=== PATIENT | female | born 1950 | race Native Hawaiian/Other Pacific Islander ===

== ENCOUNTER 2017-01-09 01:03 | Emergency (ER) | payer OTHER ==
[~2017-01-09] VITALS: Ht 172.7 cm; Wt 108.9 kg
[2017-01-09 01:58] LABS: PLATELET COUNT 292 K/uL (152-353)
[2017-01-09 02:20] VITALS: BP 129/60; TEMP 98.9
== END 2017-01-09 02:20 | disposition home or self-care (01) ==
LOC: ED 01:03
PROVIDERS: Specialist
DX: J02.0 Streptococcal pharyngitis (principal)
CPT/HCPCS: 36415; 85027; 87880; 99283

== ENCOUNTER 2017-06-04 13:48 | Outpatient (CLI) | payer OTHER | END 2017-06-04 14:50 | disposition home or self-care (01) | LOC: LAB 13:48 | DX: N39.0 Urinary tract infection, site not specified (principal) | CPT/HCPCS: 81000; 87077; 87086; 87088; 87186 ==

== ENCOUNTER 2017-07-21 09:52 | Outpatient (CLI) | payer OTHER | END 2017-07-21 23:00 | disposition home or self-care (01) | LOC: LABW 09:52 | DX: N39.0 Urinary tract infection, site not specified (principal) | CPT/HCPCS: 81000; 87086; 87088 ==

== ENCOUNTER 2017-09-11 10:21 | Outpatient (CLI) | payer OTHER | END 2017-09-11 23:00 | disposition home or self-care (01) | LOC: RAD 10:21 | DX: Z78.0 Asymptomatic menopausal state (principal) ==

== ENCOUNTER 2018-03-30 09:22 | Outpatient (CLI) | payer OTHER | END 2018-03-30 22:39 | disposition home or self-care (01) | LOC: LABW 09:22 | DX: B35.1 Tinea unguium (principal) | CPT/HCPCS: 36415; 84450; 84460 ==

== ENCOUNTER 2018-06-10 09:25 | Outpatient (CLI) | payer OTHER | END 2018-06-10 21:42 | disposition home or self-care (01) | LOC: LABW 09:25 | DX: J03.90 Acute tonsillitis, unspecified (principal); Z12.11 Encounter for screening for malignant neoplasm of colon; R53.82 Chronic fatigue, unspecified | CPT/HCPCS: 36415; 80074; 87651 ==

== ENCOUNTER 2018-12-29 08:43 | Outpatient (CLI) | payer OTHER | END 2018-12-29 22:32 | disposition home or self-care (01) | LOC: RAD 08:43 → LABW 08:43 | DX: Z77.22 Contact with and (suspected) exposure to environmental tobacco smoke (acute) (chronic) (principal); Z12.11 Encounter for screening for malignant neoplasm of colon; R19.8 Other specified symptoms and signs involving the digestive system and abdomen | CPT/HCPCS: 82272 ==

== ENCOUNTER 2019-05-20 07:40 | Outpatient (CLI) | payer OTHER ==
[2019-05-20 08:09] LABS: PLATELET COUNT 337 K/uL (152-353)
[2019-05-20 08:34] LABS: SODIUM 141 mmol/L (136-145)
== END 2019-05-20 21:19 | disposition home or self-care (01) ==
LOC: RESP 07:40 → RAD 07:40 → LABW 07:40 → RAD 21:19
PROVIDERS: Family Medicine
DX: R05 Cough (principal); J01.80 Other acute sinusitis; R01.1 Cardiac murmur, unspecified; R53.83 Other fatigue; E55.9 Vitamin D deficiency, unspecified; Z79.899 Other long term (current) drug therapy
CPT/HCPCS: 36415; 80053; 80061; 81000; 82306; 82550; 84439; 84443; 84484; 85027; 87077; 87086; 87088; 87186; 93005

== ENCOUNTER 2019-05-27 17:38 | Outpatient (CLI) | payer OTHER | END 2019-05-27 19:55 | disposition home or self-care (01) | LOC: LAB 17:38 | DX: N39.0 Urinary tract infection, site not specified (principal) | CPT/HCPCS: 87077; 87086; 87088; 87186 ==

== ENCOUNTER 2020-06-12 08:58 | Outpatient (CLI) | payer OTHER | END 2020-06-12 19:09 | disposition home or self-care (01) | LOC: RAD 08:58 | PROVIDERS: ATTEND Family Medicine | DX: R01.1 Cardiac murmur, unspecified (principal); R53.83 Other fatigue | CPT/HCPCS: 93005 ==

== ENCOUNTER 2020-07-26 08:14 | Outpatient (CLI) | payer OTHER | END 2020-07-26 20:04 | disposition home or self-care (01) | LOC: LABW 08:14 | PROVIDERS: ATTEND Internal Medicine Cardiovascular Disease | DX: E78.49 Other hyperlipidemia (principal) | CPT/HCPCS: 36415; 80061 ==

== ENCOUNTER 2020-10-02 14:58 | Outpatient (CLI) | payer OTHER | END 2020-10-02 21:13 | disposition home or self-care (01) | LOC: RESP 14:58 | PROVIDERS: ATTEND Internal Medicine Cardiovascular Disease | DX: R01.1 Cardiac murmur, unspecified (principal) ==

== ENCOUNTER 2020-10-09 09:21 | Outpatient (CLI) | payer OTHER | END 2020-10-09 21:01 | disposition home or self-care (01) | LOC: MAMMO 09:21 | PROVIDERS: ATTEND Specialist | DX: Z12.31 Encounter for screening mammogram for malignant neoplasm of breast (principal) ==

== ENCOUNTER 2021-03-14 08:41 | Outpatient (CLI) | payer OTHER | END 2021-03-14 19:07 | disposition home or self-care (01) | LOC: LAB 08:41 | PROVIDERS: ATTEND Family Medicine | DX: Z20.822 Contact with and (suspected) exposure to COVID-19 (principal) | CPT/HCPCS: 87635; G2023; U0003 ==

== ENCOUNTER 2021-10-16 09:11 | Outpatient (CLI) | payer OTHER | END 2021-10-16 19:17 | disposition home or self-care (01) | LOC: MAMMO 09:11 | PROVIDERS: ATTEND Family Medicine | DX: Z12.31 Encounter for screening mammogram for malignant neoplasm of breast (principal); Z78.0 Asymptomatic menopausal state ==

== ENCOUNTER 2022-01-02 08:09 | Outpatient (CLI) | payer OTHER ==
[2022-01-02 09:13] LABS: POTASSIUM 3.9 mmol/L (3.6-5.2)
[2022-01-02 09:38] LABS: PLATELET COUNT 185 K/uL (152-353)
== END 2022-01-02 19:04 | disposition home or self-care (01) ==
LOC: LABW 08:09
PROVIDERS: ATTEND Internal Medicine
DX: N18.32 Chronic kidney disease, stage 3b (principal); E55.9 Vitamin D deficiency, unspecified; E87.5 Hyperkalemia; Z79.899 Other long term (current) drug therapy
CPT/HCPCS: 36415; 80053; 81002; 82088; 82306; 82330; 82436; 82570; 83735; 83970; 84100; 84133; 84156; 84244; 84439; 84443; 85027

== ENCOUNTER 2022-05-05 07:58 | Outpatient (CLI) | payer OTHER ==
[2022-05-05 09:20] LABS: POTASSIUM 4.5 mmol/L (3.6-5.2)
[2022-05-05 16:05] LABS: PLATELET COUNT 270 K/uL (152-353)
== END 2022-05-05 19:52 | disposition home or self-care (01) ==
LOC: LABW 07:58
PROVIDERS: ATTEND Internal Medicine
DX: N18.32 Chronic kidney disease, stage 3b (principal); E55.9 Vitamin D deficiency, unspecified; E87.5 Hyperkalemia; Z79.899 Other long term (current) drug therapy
CPT/HCPCS: 36415; 80053; 81002; 82088; 82306; 82330; 82436; 82570; 83735; 83970; 84100; 84133; 84156; 84244; 84439; 84443; 85027

== ENCOUNTER 2022-07-28 08:02 | Outpatient (CLI) | payer OTHER ==
[2022-07-28 08:55] LABS: PLATELET COUNT 257 K/uL (152-353)
[2022-07-28 09:03] LABS: POTASSIUM 4.1 mmol/L (3.6-5.2)
== END 2022-07-28 20:13 | disposition home or self-care (01) ==
LOC: LABW 08:02
PROVIDERS: ATTEND Internal Medicine
DX: N18.32 Chronic kidney disease, stage 3b (principal); E55.9 Vitamin D deficiency, unspecified; R73.03 Prediabetes; E87.5 Hyperkalemia
CPT/HCPCS: 36415; 80053; 81002; 82088; 82306; 82330; 82436; 82570; 83036; 83735; 83970; 84100; 84133; 84156; 84244; 84439; 84443; 85027

== ENCOUNTER 2022-10-22 08:40 | Outpatient (CLI) | payer OTHER | END 2022-10-22 19:02 | disposition home or self-care (01) | LOC: RAD 08:40 | PROVIDERS: ATTEND Family Medicine | DX: Z12.31 Encounter for screening mammogram for malignant neoplasm of breast (principal); Z78.0 Asymptomatic menopausal state; Z13.820 Encounter for screening for osteoporosis ==

== ENCOUNTER 2022-11-24 08:12 | Outpatient (CLI) | payer OTHER ==
[2022-11-24 09:09] LABS: PLATELET COUNT 249 K/uL (152-353)
[2022-11-24 09:19] LABS: POTASSIUM 3.7 mmol/L (3.6-5.2)
== END 2022-11-24 19:19 | disposition home or self-care (01) ==
LOC: LABW 08:12
PROVIDERS: ATTEND Internal Medicine
DX: N18.32 Chronic kidney disease, stage 3b (principal); E55.9 Vitamin D deficiency, unspecified; R73.03 Prediabetes; E87.5 Hyperkalemia
CPT/HCPCS: 36415; 80053; 81002; 82306; 82330; 82436; 82570; 83036; 83735; 83970; 84100; 84133; 84156; 84439; 84443; 85027

== ENCOUNTER 2022-12-23 04:14 | Emergency (ER) | payer OTHER ==
[~2022-12-23] VITALS: Ht 172.7 cm; Wt 100.7 kg
[2022-12-23 04:58] LABS: PLATELET COUNT 270 K/uL (152-353)
[2022-12-23 06:20] VITALS: BP 155/64; TEMP 98
== END 2022-12-23 06:20 | disposition home or self-care (01) ==
LOC: ED 04:14
PROVIDERS: Family Medicine
DX: N10 Acute pyelonephritis (principal); M54.9 Dorsalgia, unspecified
CPT/HCPCS: 81000; 85027; 87077; 87086; 87088; 87186; 96372; 99283; J0696; J2405

== ENCOUNTER 2022-12-24 01:23 | Emergency (ER) | payer OTHER ==
[~2022-12-24] VITALS: Ht 172.7 cm; Wt 100.7 kg
[2022-12-24 01:30] VITALS: TEMP 98.8
[2022-12-24 02:34] VITALS: BP 128/66
== END 2022-12-24 02:34 | disposition home or self-care (01) ==
LOC: ED 01:23
DX: R04.0 Epistaxis (principal)
CPT/HCPCS: 99282